=== PATIENT | female | born 1945 | race African-American/Black ===

== ENCOUNTER 2016-05-23 19:35 | Observation (INO) ==
--- NOTE | 2016-05-23 19:51 | Emergency Department Note ---
Disposition Clinical Impression: Chest pain Qualifiers: Chest pain type: precordial pain Qualified Code(s): R07.2 - Precordial pain Disposition: Home, Self-Care Condition: Fair Time of Disposition: 22:40 Extremity Problem HPI - General Chief complaint: ED Extremity Problem,Nontraumatic Stated complaint: Left shoulder, lefft breast, left back and shoulde Time Seen by Provider: 05/23/16 19:39 Source: patient, EMS Mode of arrival: EMS Limitations: no limitations Nursing Notes Reviewed: Yes Vital Signs Reviewed: Yes - History of Present Illness HPI Narrative: Patient is a 71-year-old female brought in by squad due to left breast and left shoulder pain. She denies this being cardiac she states the pain is worse when she touches her breast. Pain began at 4 PM at rest. She did take 3 sublingual nitroglycerin before calling squad. She did not take any aspirin she states she is allergic to aspirin. On discussion with the 71-year-old female she has had multiple falls prostate April 21 she denies any blurred vision that was she denies any actual syncope in addition T that she tellshaving chest pain is relieved with nitroglycerin states that she has had no nausea no vomiting patient states that the nitroglycerin really relieves her pain the best she denies any fever chills she has had no history of cardiac catheterization or stress test Onset (ago): day(s) (2) Consistency: intermittent Injury Location: left (chest ) Pain Scale: 5 Quality: aching Radiation: proximal Improves with: nothing Worsens with: nothing Associated symptoms: Reports: chest pain. Denies: shortness of breath, abdominal pain, back pain, bowel/bladder symptoms, fever, myalgias, arthralgias , rash, change in appearance, swelling, redness Context: other (no prior cardiac hx or workup) - Related Data Home Medications Medication Instructions Recorded Confirmed GlipiZIDE [Glucotrol] 5 mg PO BIDWM 01/18/16 05/24/16 Insulin LISPRO [HumaLOG] 20 units SQ TIDWM 01/18/16 05/24/16 Lisinopril [Zestril] 10 mg PO DAILY 01/18/16 05/24/16 Albuterol Neb 05/24/16 Atorvastatin [Lipitor] 10 mg PO HS 05/24/16 05/24/16 Ondansetron ODT [Zofran ODT] 4 mg SL Q6HR 05/24/16 05/24/16 Previous Rx's Medication Instructions Recorded Albuterol Sulfate [Albuterol 2 puff IH Q4HR PRN #1 hfa.aer.ad 04/27/16 Inhaler] Allergies Allergy/AdvReac Type Severity Reaction Status Date / Time Penicillins Allergy Hives Verified 01/18/16 11:38 Iodinated Contrast Media - AdvReac Hives Verified 01/18/16 11:38 Oral and [Iodinated Contrast Media - IV Dye] sumatriptan [From Imitrex] AdvReac Nausea Verified 01/18/16 11:38 All systems ED: reviewed and negative except as stated. Constitutional: Denies: fever, chills, weakness Eyes: Denies: vision change ENT ED: Denies: ear pain, throat pain Cardiovascular: Reports: chest pain Respiratory: Denies: cough, dyspnea, wheezes Gastrointestinal: Denies: abdominal pain, nausea, vomiting Genitourinary: Denies: urgency, dysuria Musculoskeletal: Denies: back pain, neck pain Integumentary: Denies: rash, abrasion Neurological: Denies: headache Psychiatric: Denies: anxiety Endocrine: Denies: fatigue Hematological/Lymphatic: Denies: easy bleeding Allergic/Immunologic: Denies: facial swelling Past Medical History - Past Medical History Attestation: Yes The following information was validated with the patient. Source: patient, old records reviewed, nursing notes reviewed Medical history: Reports: COPD, diabetes, hypertension, other Surgical history: Reports: cholecystectomy, hysterectomy, knee replacement ( Bilateral), orthopedic, other (Right shoulder, right ankle), other (Thoracotomy , reported to be accidental) Psychiatric history: Reports: no psych history [employer] OPER[employer] history: Reports: no [employer] OPERATOR history - Social History Smoking Status: Former smoker Smokeless Tobacco Status: No Alcohol use: Reports: none Drug use: Reports: none Physical Exam - General Limitations: no limitations General appearance: alert, in no apparent distress, obese - Head Head exam: atraumatic, normocephalic, normal inspection - Eye Eye exam: Present: normal appearance, PERRL, EOMI - ENT ENT exam: normal exam, normal oropharynx, mucous membranes moist, TM's normal bilaterally, normal external ear exam - Neck Neck exam: Present: normal inspection, full ROM, trachea midline - Chest Chest inspection: Present: normal inspection, symmetric chest wall rise, tenderness (left chest wall) - Respiratory Respiratory exam: Present: normal lung sounds bilaterally - Cardiovascular Cardiovascular exam: Present: regular rate, normal rhythm, normal heart sounds - Abdominal Exam Abdominal exam: Present: soft, Non-Tender, normal bowel sounds. Absent: mass, pulsatile mass - Extremities Exam Extremities exam: Present: normal inspection, full ROM, normal capillary refill. Absent: tenderness, calf tenderness - Expanded Upper Extremity Exam Shoulder exam: Present: normal inspection, full ROM Arm exam: Present: normal inspection, full ROM Elbow exam: Present: normal inspection, full ROM Forearm/Wrist exam: Present: normal inspection, full ROM Hand exam: Present: normal inspection, full ROM Vascular exam: Normal: capillary refill, radial pulse - Expanded Lower Extremity Exam Hip/Pelvis exam: Present: normal inspection, full ROM Upper leg exam: Present: normal inspection, full ROM Knee exam: Present: normal inspection, full ROM Lower leg exam: Present: normal inspection, full ROM Ankle exam: Present: normal inspection, full ROM Foot/toe exam: Present: normal inspection, full ROM Neurovascular/Tendon exam: Present: normal capillary refill, normal fine/light touch. Absent: motor deficit, sensory deficit, tendon deficit Gait: observed and normal - Back Exam Back exam: Present: normal inspection, full ROM. Absent: muscle spasm - Neurological Exam Neurological exam: Present: alert, oriented X3, CN II-XII intact - Psychiatric Psychiatric exam: Present: normal affect, normal mood - Skin Skin exam: Present: warm, dry, intact, normal color Course Course Narrative: She was seen and examined patient was resting comfortably had no change in pain or discomfort at time of examination then shortly afterwards being in the emergency*complaining of left breast pain there is no rash no lesions patient was ordered Maria Stein to see if this alleviates because the EKG initially was negative repeat EKG again is unchanged and also was observed - Reevaluation(s) Reevaluation #1: Patient presents emergency room is having chest pain patient has had intermittent and last year she is currently pain-free she has had no additional symptoms as result patient be admitted for observation spoke with Dr. Drake agreed for observation Vital Signs Temperature 97.3 F L 05/23/16 19:39 Pulse Rate 86 05/23/16 19:39 Respiratory Rate 16 05/23/16 19:39 Blood Pressure 154/92 05/23/16 19:39 O2 Sat by Pulse Oximetry 95 05/23/16 19:39 Temperature 97.5 F L 05/24/16 10:33 Pulse Rate 78 05/24/16 10:33 Respiratory Rate 18 05/24/16 10:33 Blood Pressure 168/93 05/24/16 10:33 O2 Sat by Pulse Oximetry 95 05/24/16 10:33 Oxygen Delivery Oxygen Delivery Room Air Extremity Problem, Nontraumati - MDM Narrative Medical decision making narrative: Chest pain unstable angina esophageal pulmonary leaks and the possible use of a pneumonia or bronchitis at this time we are going to admit her for observation to rule out etiologies - Medical Records Medical records reviewed: Yes I reviewed the patient's medical records. - Lab Data Lab results reviewed: Yes I reviewed the patient's lab results. Result diagrams: 05/24/16 07:15 05/24/16 07:15 Lab Results 05/23/16 05/23/16 05/23/16 Range/Units 20:05 20:05 20:05 WBC 7.8 (4.3-11.1) K/mcL RBC 5.33 H (3.82-4.97) M/mcL Hgb 13.8 (11.5-15.4) g/dL Hct 42.1 (35.3-44.9) % MCV 79.0 L (83.0-100.0) fL MCH 25.9 L (28.0-33.3) pg MCHC 32.8 (31.6-35.5) g/dL RDW 15.6 H (11.5-14.5) % Plt Count 183 (140-400) K/mcL MPV 11.2 (9.4-12.4) fL Immature Gran % 0.3 (0-4) % Seg Neutrophils % 54.4 % Lymphocytes % 35.1 % Monocytes % 5.7 % Eosinophils % 3.7 % Basophils % 0.8 % Neutrophils # 4.2 (1.6-8.9) K/mcL Lymphocytes # 2.7 (0.6-4.6) K/mcL Monocytes # 0.4 (0.0-1.3) K/mcL Eosinophils # 0.3 (0.0-0.6) K/mcL Basophils # 0.1 (0.0-0.2) K/mcL PT 10.9 (9.4-12.1) Seconds INR 1.0 Sodium 142 (136-145) mEq/L Potassium 3.9 (3.5-4.5) mEq/L Chloride 106 (98-109) mEq/L Carbon Dioxide 25 (19-29) mEq/L BUN 16 (7-20) mg/dL Creatinine 0.84 (0.57-1.11) mg/dL Est GFR ( Amer) > 60 (> 60) Est GFR (Non-Af Amer) > 60 (> 60) BUN/Creatinine Ratio 19 (6-26) Glucose 206 H (70-99) mg/dL Calculated Osmolality 301 H (280-300) Calcium 9.2 (8.6-10.8) mg/dL Total Bilirubin 0.4 (0.2-1.2) mg/dL AST 18 (5-34) Units/L ALT 12 (0-55) Units/L Alkaline Phosphatase 109 (38-126) Units/L Troponin I (0-0.03) ng/mL Serum Total Protein 7.1 (6.0-8.3) g/dL Albumin 3.4 L (3.5-5.0) g/dL Globulin 3.7 H (2.4-3.5) g/dL Albumin/Globulin Ratio 0.9 L (1.1-2.2) Urine Color (Yellow) Urine Clarity (Clear) Urine pH (5.0-8.0) pH Units Ur Specific [place] (1.010-1.025) Urine Protein (Neg-Trace) mg/dL Urine Glucose (UA) (Normal) mg/dL Urine Ketones (Negative) mg/dL Urine Blood (Negative) Urine Nitrite (Negative) Urine Bilirubin (Negative) Urine Urobilinogen (Normal) mg/dL Ur Leukocyte Esterase (Negative) Urine Microscopic RBC (0-3) per hpf Urine Microscopic WBC Ur Squamous Epith Cells (None-Few) per lpf Ur Culture Indicated? (NO) 05/23/16 05/23/16 Range/Units 20:05 22:25 WBC (4.3-11.1) K/mcL RBC (3.82-4.97) M/mcL Hgb (11.5-15.4) g/dL Hct (35.3-44.9) % MCV (83.0-100.0) fL MCH (28.0-33.3) pg MCHC (31.6-35.5) g/dL RDW (11.5-14.5) % Plt Count (140-400) K/mcL MPV (9.4-12.4) fL Immature Gran % (0-4) % Seg Neutrophils % % Lymphocytes % % Monocytes % % Eosinophils % % Basophils % % Neutrophils # (1.6-8.9) K/mcL Lymphocytes # (0.6-4.6) K/mcL Monocytes # (0.0-1.3) K/mcL Eosinophils # (0.0-0.6) K/mcL Basophils # (0.0-0.2) K/mcL PT (9.4-12.1) Seconds INR Sodium (136-145) mEq/L Potassium (3.5-4.5) mEq/L Chloride (98-109) mEq/L Carbon Dioxide (19-29) mEq/L BUN (7-20) mg/dL Creatinine (0.57-1.11) mg/dL Est GFR ( Amer) (> 60) Est GFR (Non-Af Amer) (> 60) BUN/Creatinine Ratio (6-26) Glucose (70-99) mg/dL Calculated Osmolality (280-300) Calcium (8.6-10.8) mg/dL Total Bilirubin (0.2-1.2) mg/dL AST (5-34) Units/L ALT (0-55) Units/L Alkaline Phosphatase (38-126) Units/L Troponin I 0.01 (0-0.03) ng/mL Serum Total Protein (6.0-8.3) g/dL Albumin (3.5-5.0) g/dL Globulin (2.4-3.5) g/dL Albumin/Globulin Ratio (1.1-2.2) Urine Color Yellow (Yellow) Urine Clarity Clear (Clear) Urine pH 5.0 (5.0-8.0) pH Units Ur Specific [place] 1.025 (1.010-1.025) Urine Protein 100 H (Neg-Trace) mg/dL Urine Glucose (UA) 250 H (Normal) mg/dL Urine Ketones Trace H (Negative) mg/dL Urine Blood Small H (Negative) Urine Nitrite Negative (Negative) Urine Bilirubin Negative (Negative) Urine Urobilinogen Normal (Normal) mg/dL Ur Leukocyte Esterase Negative (Negative) Urine Microscopic RBC 3-5 H (0-3) per hpf Urine Microscopic WBC Test Not Performed Ur Squamous Epith Cells Few (None-Few) per lpf Ur Culture Indicated? NO (NO) - Radiology Data Radiology results reviewed: Yes I reviewed the patient's radiology results. ITS Impressions Chest X-Ray 05/23/16 19:39 IMPRESSION: Mild bibasilar atelectasis. D/ / Regino Hutton MD / Regino Hutton MD Interpreting Provider: Regino Hutton MD Impressions Chest X-Ray 05/23/16 19:39 IMPRESSION: Mild bibasilar atelectasis. D/ / Regino Hutton MD / Regino Hutton MD Interpreting Provider: Regino Hutton MD Abdomen/Pelvis CT 05/23/16 21:33 IMPRESSION: 1. No acute process in the abdomen or pelvis. 2. Moderate diverticulosis in the sigmoid colon. D/ / 05/23/2016 22:24:27 Jerry Ruano MD / rachelle Interpreting Provider: Jerry Ruano MD Chest CT 05/23/16 21:33 IMPRESSION: 1. No acute process in the abdomen or pelvis. 2. Moderate diverticulosis in the sigmoid colon. D/ / 05/23/2016 22:24:27 Jerry Ruano MD / rachelle Interpreting Provider: Jerry Ruano MD - EKG Data EKG attestation: Yes I reviewed and interpreted this EKG. EKG results narrative: Rhythm NSR Heart Rate 93 PA 175 QRS 93 QT 346 Axes -26 EEG #2 Rhythm NSR Heart Rate 89 PA 156 QRS 97 QT 363 Axes -23 Critical Care Time Critical Care Time: No
[2016-05-23 20:39] LABS: Prothrombin Time 10.9 Seconds (9.4-12.1)
[2016-05-23 20:51] LABS: Alanine Aminotransferase 12 Units/L (0-55); Albumin 3.4 g/dL (3.5-5.0); Albumin/Globulin Ratio 0.9 (1.1-2.2); Alkaline Phosphatase 109 Units/L (38-126); Aspartate Amino Transferase 18 Units/L (5-34); BUN/Creatinine Ratio 19 (6-26); Bilirubin,Total 0.4 mg/dL (0.2-1.2); Blood Urea Nitrogen 16 mg/dL (7-20); Calcium 9.2 mg/dL (8.6-10.8); Carbon Dioxide 25 mEq/L (19-29); Chloride 106 mEq/L (98-109); Globulin 3.7 g/dL (2.4-3.5); Glucose 206 mg/dL (70-99); Osmolality,Calculated 301 (280-300); Potassium 3.9 mEq/L (3.5-4.5); Sodium 142 mEq/L (136-145); Total Protein 7.1 g/dL (6.0-8.3); eGFR For African Americans > 60 (> 60); eGFR For Non-African Americans > 60 (> 60)
[2016-05-23 21:01] LABS: Basophils # 0.1 K/mcL (0.0-0.2); Basophils % 0.8 %; Eosinophils # 0.3 K/mcL (0.0-0.6); Eosinophils % 3.7 %; Hematocrit 42.1 % (35.3-44.9); Hemoglobin 13.8 g/dL (11.5-15.4); Immature Granulocytes % 0.3 % (0-4); Lymphocytes # 2.7 K/mcL (0.6-4.6); Lymphocytes % 35.1 %; Mean Corpuscular HGB Conc 32.8 g/dL (31.6-35.5); Mean Corpuscular Hemoglobin 25.9 pg (28.0-33.3); Mean Platelet Volume 11.2 fL (9.4-12.4); Monocytes # 0.4 K/mcL (0.0-1.3); Monocytes % 5.7 %; Neutrophils # 4.2 K/mcL (1.6-8.9); Platelet Count 183 K/mcL (140-400); Red Blood Count 5.33 M/mcL (3.82-4.97); Red Cell Distribution Width 15.6 % (11.5-14.5); Segmented Neutrophils % 54.4 %
[2016-05-23] MEDS ORDERED: *HR* HYDROcodone/Acet 5/325 mg TABLET PO ONE (21:24)
[2016-05-23] MEDS ORDERED: Aspirin 81 MG TAB.CHEW PO ONE (21:24)
[2016-05-23 22:29] LABS: Bilirubin,Urine Negative (Negative); Blood,Urine Small (Negative); Clarity,Urine Clear (Clear); Color,Urine Yellow (Yellow); Glucose,Urine (UA) 250 mg/dL (Normal); Ketones,Urine Trace mg/dL (Negative); Leukocyte Esterase,Urine Negative (Negative); Nitrite,Urine Negative (Negative); Protein,Urine 100 mg/dL (Neg-Trace); Specific Gravity,Urine 1.025 (1.010-1.025); Urobilinogen,Urine Normal (Normal)
[2016-05-23 22:38] LABS: Squamous Epithelial Cell,Urine Few per lpf (None-Few)
[2016-05-24] MEDS ORDERED: Naloxone 0.4 MG/ML INJ IVP PRN (00:58)
[2016-05-24] MEDS ORDERED: *HR* Dextrose 50 % in Water (Syg) 50 ML SYRINGE IVP PRN (00:58)
[2016-05-24] MEDS ORDERED: D5% in Water 1,000 ML IV PRN (00:58)
[2016-05-24] MEDS ORDERED: Dextrose Gel 15 GM PO PRN ×2 (00:58)
[2016-05-24] MEDS ORDERED: Ondansetron 4 MG/2 ML VIAL IVP PRN (00:58)
[2016-05-24] MEDS ORDERED: Lisinopril 20 MG TABLET PO ONE (03:56)
[2016-05-24] MEDS: *HR* HYDROcodone/Acet 5/325 mg TABLET PO PRN ×3 (04:10→13:04)
[2016-05-24] MEDS ORDERED: Famotidine 20 MG TABLET PO SCH (07:30)
[2016-05-24] MEDS ORDERED: *HR* GlipiZIDE 5 MG TABLET PO SCH (08:00)
[2016-05-24] MEDS: Insulin LISPRO 300 UNITS/3 ML VIAL SQ SCH ×2 (08:19→13:01)
[2016-05-24 08:53] LABS: Basophils # 0.1 K/mcL (0.0-0.2); Basophils % 0.9 %; Eosinophils # 0.3 K/mcL (0.0-0.6); Eosinophils % 3.7 %; Hematocrit 38.8 % (35.3-44.9); Hemoglobin 12.6 g/dL (11.5-15.4); Immature Granulocytes % 0.2 % (0-4); Lymphocytes # 2.7 K/mcL (0.6-4.6); Mean Corpuscular HGB Conc 32.5 g/dL (31.6-35.5); Mean Corpuscular Hemoglobin 25.6 pg (28.0-33.3); Mean Corpuscular Volume 78.9 fL (83.0-100.0); Mean Platelet Volume 11.1 fL (9.4-12.4); Monocytes # 0.5 K/mcL (0.0-1.3); Monocytes % 6.6 %; Neutrophils # 4.4 K/mcL (1.6-8.9); Platelet Count 150 K/mcL (140-400); Red Blood Count 4.92 M/mcL (3.82-4.97); Red Cell Distribution Width 15.5 % (11.5-14.5); Segmented Neutrophils % 54.6 %
[2016-05-24 09:52] LABS: BUN/Creatinine Ratio 21 (6-26); Blood Urea Nitrogen 17 mg/dL (7-20); Calcium 8.7 mg/dL (8.6-10.8); Carbon Dioxide 21 mEq/L (19-29); Chloride 107 mEq/L (98-109); Glucose 268 mg/dL (70-99); Osmolality,Calculated 299 (280-300); Potassium 4.2 mEq/L (3.5-4.5); Sodium 139 mEq/L (136-145); eGFR For African Americans > 60 (> 60); eGFR For Non-African Americans > 60 (> 60)
[2016-05-24 10:38] VITALS: BP 168/93
--- NOTE | 2016-05-24 14:39 | Internal Med History&Physical ---
Date of Encounter: 05/24/16 Time of Encounter: 13:45 Assessment and Plan (1) Chest pain Current visit: Yes Status: Acute Doubt myocardial ischemia. Repeat cardiac enzymes were ordered by emergency room. Further workup will be done as needed. Qualifiers: Chest pain type: precordial pain Qualified Code(s): R07.2 - Precordial pain Internal Medicine - H&P: HPI Chief complaint: Chest and left arm pain Admitted From: Home Plans for Post Hospital Care: Home History of present illness: Ms. Parks is a 71 year old female who came to emergency room stating she had onset of left chest discomfort that radiated to her back approximately 3:30 PM while at leisure. She has had pain in her left shoulder that been present for several months. She states the shoulder pain seemed to be more extensive and more intense when the chest discomfort occurred. She took a nitroglycerin pill with complete relief of the chest discomfort. A short while later the chest discomfort recurred and she took another nitroglycerin pill with only minimal relief. She then applied a nitroglycerin patch with minimal relief. She took yet another nitroglycerin pill and came to emergency room. She was evaluated and admitted to [facility] for ongoing care needs. She denies previous similar chest discomfort. Her cardiovascular history is significant for hypertension. She states she had a heart cath at [facility] approximately 2012 which did not show any significant stenoses. She denies angina or anginal equivalents on exertion. She denies DVT or pulmonary embolus. She states her chest pain has resolved again. Past Med Surg Social Fam HX - Past Medical History Medical history: COPD, diabetes, hypertension Psychiatric history: no psych history - Past Surgical History Surgical History: cholecystectomy, hysterectomy, knee replacement, orthopedic, other, other - Social History Smoking Status: Former smoker Smokeless Tobacco Status: No Alcohol use: none Drug use: none - Family History Mother Age: 70 Living Status: Hx Family Cardiac Disorders: Yes (HYPERTENSION/ HEART DISEASE) Hx Family Cancer: Yes (BREAST/LUNG/STOMACH/COLON) Hx Family Endocrine Disorder: Yes (DIABETES) Internal Medicine - H&P: Meds GlipiZIDE [Glucotrol] 5 mg PO BIDWM 01/18/16 [History] Insulin LISPRO [HumaLOG] 20 units SQ TIDWM 01/18/16 [History] Lisinopril [Zestril] 10 mg PO DAILY 01/18/16 [History] Albuterol Sulfate [Albuterol Inhaler] 2 puff IH Q4HR PRN #1 hfa.aer.ad 04/27/16 [Rx] Albuterol Neb 05/24/16 [History] Atorvastatin [Lipitor] 10 mg PO HS 05/24/16 [History] Ondansetron ODT [Zofran ODT] 4 mg SL Q6HR 05/24/16 [History] Allergies Penicillins Allergy (Verified 01/18/16 11:38) Hives Iodinated Contrast Media - Oral and [Iodinated Contrast Media - IV Dye] Adverse Reaction (Verified 01/18/16 11:38) Hives sumatriptan [From Imitrex] Adverse Reaction (Verified 01/18/16 11:38) Nausea All Systems PM: A 10-system review of systems was performed and is negative for pertinent findings except as documented above in the HPI. Review of systems: Gen.: Her weight has increased approximately 10 pounds in the past year. Cardiovascular: As per history of present illness Respiratory: She smoked from age [age] up to 3 packs per day. She had PFTs approximately 2011 and was told she had mild COPD. She does not wear home oxygen. GI: She has had cholecystectomy. She denies disorders of her liver or exocrine pancreas : She denies hematuria dysuria or kidney stones Neurologic: She denies large distribution strokes or seizures Endocrine: She was diagnosed with DM 2 approximately age 51. She has hyperlipidemia but denies thyroid disease Hematology: She denies blood disorders cancers or anemia Psychiatric: She denies anxiety depression or other mental health issues Musk skeletal: She has DJD. She sustained right arm fracture after a fall December 2015 with ORIF repair. She has had frequent pain in her left shoulder since January 2016 occurring now on a daily basis. She has been diagnosed with vitamin D deficiency. She denies gout. - Constitutional Vitals: Temp Pulse Resp BP Pulse Ox 97.5 F L 78 18 168/93 95 05/24/16 10:33 05/24/16 10:33 05/24/16 10:33 05/24/16 10:33 05/24/16 10:33 Exam: Gen.: She is a well developed well-nourished female who appears in no severe distress at present time. HEENT: Head is atraumatic and normocephalic. Eyes: EOMI. There is no scleral icterus. Mouth: Mucosa is moist. Neck: Supple and nontender. There is no thyromegaly or adenopathy noted. Heart: Regular without murmurs gallops or ectopics. Lungs: No wheezes or crackles heard. Chest: She is tender in her costosternal joints to palpation. She has pain in the inframammary area of the left anterior chest wall Abdomen: Soft and nontender. No masses or guarding noted. Extremities: There is no cyanosis edema or clubbing noted. Dorsalis pedis and posttibial pulses are 1-2 over 2 bilaterally. She has tenderness in the left anterior shoulder area over the biceps tendon. She has pain on passive range of motion of the shoulders. Neurologic: Mental status: She is talkative and a good historian. Cranial nerves: Smile is symmetric. Forehead wrinkles bilaterally. Tongue protrudes midline. EOMI. Motor: There is no pronator drift. Cerebellar: Finger to nose is intact bilaterally. Skin: Warm and dry Internal Med - H&P Results - Labs CBC & Chem 7: 05/24/16 07:15 05/24/16 07:15 Labs: Short CBC 05/24/16 Range/Units 07:15 WBC 8.0 (4.3-11.1) K/mcL Hgb 12.6 (11.5-15.4) g/dL Hct 38.8 (35.3-44.9) % Plt Count 150 (140-400) K/mcL Neutrophils # 4.4 (1.6-8.9) K/mcL BMP 05/24/16 07:15 Sodium 139 Potassium 4.2 Chloride 107 Carbon Dioxide 21 BUN 17 Creatinine 0.81 Glucose 268 H Calcium 8.7 Cardiac Enzymes 05/24/16 Range/Units 07:15 Troponin I 0.00 (0-0.03) ng/mL
--- NOTE | 2016-05-24 15:16 | Discharge Summary ---
Date of Encounter: 05/24/16 Time of Encounter: 13:45 - Discharge Diagnosis (1) Chest pain Priority: Primary Status: Acute Qualifiers: Chest pain type: precordial pain Qualified Code(s): R07.2 - Precordial pain - Discharge Medications Home Medications: GlipiZIDE [Glucotrol] 5 mg PO BIDWM 01/18/16 [History] Insulin LISPRO [HumaLOG] 20 units SQ TIDWM 01/18/16 [History] Lisinopril [Zestril] 10 mg PO DAILY 01/18/16 [History] Albuterol Sulfate [Albuterol Inhaler] 2 puff IH Q4HR PRN #1 hfa.aer.ad 04/27/16 [Rx] Albuterol Neb 05/24/16 [History] Atorvastatin [Lipitor] 10 mg PO HS 05/24/16 [History] Ondansetron ODT [Zofran ODT] 4 mg SL Q6HR 05/24/16 [History] Allergies/Adverse Reactions: Allergies Penicillins Allergy (Verified 01/18/16 11:38) Hives Iodinated Contrast Media - Oral and [Iodinated Contrast Media - IV Dye] Adverse Reaction (Verified 01/18/16 11:38) Hives sumatriptan [From Imitrex] Adverse Reaction (Verified 01/18/16 11:38) Nausea Date of admission: 05/23/16 23:25 Primary care physician: Zee Ortiz - Patient Status Disposition: Home, Self-Care Condition: Fair Overall status at discharge: patient is progressing back to baseline - Discharge Instructions Follow Up With: Zee Ortiz [Primary Care Provider] - 1 week - Diet and Activity Activity: resume usual activities as tolerated Diet: diabetic diet Hospital course: Ms. Parks is a 71 year old female who came to emergency room stating she had onset of left chest discomfort that radiated to her back approximately 3:30 PM while at leisure. She has had pain in her left shoulder that been present for several months. She states the shoulder pain seemed to be more extensive and more intense when the chest discomfort occurred. She took a nitroglycerin pill with complete relief of the chest discomfort. A short while later the chest discomfort recurred and she took another nitroglycerin pill with only minimal relief. She then applied a nitroglycerin patch with minimal relief. She took yet another nitroglycerin pill and came to emergency room. She was evaluated and admitted to [facility] for ongoing care needs. Initial orders were written by the emergency room physician. I saw her on May 24 and performed a history physical and discharge. Repeat cardiac enzymes showed no evidence of myocardial damage. When I saw her I did not think the chest pain was of myocardial ischemic origin. I felt it was musk skeletal origin. I recommended she try OTC Advil/Aleve at home. I recommended she call her primary care provider and/or orthopedist if she is not improved within one week. She felt stable for discharge home which I felt was reasonable. She will follow with her primary care provider in approximately 7-10 days. - Time Spent with Patient Total time spent providing and/or coordinating discharge services: - Constitutional Vitals: Temp Pulse Resp BP Pulse Ox 97.5 F L 78 18 168/93 95 05/24/16 10:33 05/24/16 10:33 05/24/16 10:33 05/24/16 10:33 05/24/16 10:33
--- NOTE | 2016-05-25 22:49 | Electrocardiograph Report ---
[facility] Test Date: 2016-05-23 Pat Name: Chelsea Parks Department: [id number] Room: [facility] Gender: F Winder Contort Operator: [id number] : 1945 Requested By: Patrick Beasley Order Number: [id number] Reading MD: Julio César Bates MD Measurements Intervals [place] Rate: 86 P: 14 [place]: 175 QRS: -26 QRSD: 93 T: 31 QT: 346 QTc: 389 Interpretive Statements SINUS RHYTHM BORDERLINE LEFT AXIS DEVIATION NONSPECIFIC ST \T\ T-WAVE ABNORMALITY Electronically Signed On 05-25-16 22:48:49 EST by Julio César Bates MD
--- NOTE | 2016-05-25 23:21 | Electrocardiograph Report ---
[facility] Test Date: 2016-05-23 Pat Name: Cehlsea Parks Department: [id number] Room: [facility] Gender: F Travel Director: [id number] : 1945 Requested By: Imani Pelletier Order Number: [id number] Reading MD: Julio César Bates MD Measurements Intervals [place] Rate: 89 P: 28 ID: [id number] QRS: -23 QRSD: 97 T: 42 QT: 363 QTc: 410 Interpretive Statements SINUS RHYTHM BORDERLINE LEFT AXIS DEVIATION POOR R-WAVE PROGRESSION NONSPECIFIC ST \T\ T-WAVE ABNORMALITY Electronically Signed On 05-25-16 23:20:11 EST by Julio César Bates MD
== END 2016-05-24 15:43 | disposition home or self-care (01) ==
LOC: INPPIK 19:35 → EMEROOPIK 19:35 → INPPIK 05-24 00:15
PROVIDERS: ADMIT Internal Medicine; ATTEND Internal Medicine

== ENCOUNTER 2018-07-29 17:50 | Inpatient (IN) ==
[2018-07-30] MEDS ORDERED: *HR* OxyCODONE/APAP 5/325 TABLET PO PRN (15:48)
[2018-07-30] MEDS ORDERED: Nitroglycerin 0.4 MG TAB.SUBL SL PRN (16:01)
[2018-07-30] MEDS ORDERED: Ondansetron ODT 4 MG TAB.RAPDIS SL PRN (16:02)
[2018-07-30] MEDS: Gabapentin 100 MG CAPSULE PO SCH (21:02)
[2018-07-30] MEDS: Furosemide 40 MG TABLET PO SCH (21:02)
[2018-07-30] MEDS: *HR* GlipiZIDE 5 MG TABLET PO SCH (21:03)
[2018-07-30] MEDS: Cefdinir 300 MG CAPSULE PO SCH (21:04)
[2018-07-30] MEDS: Insulin LISPRO 300 UNITS/3 ML VIAL SQ SCH (21:04)
[2018-07-31 04:52] LABS: Basophils % 0.5 %; Eosinophils # 0.5 K/mcL (0.0-0.6); Eosinophils % 7.2 %; Hematocrit 30.7 % (35.3-44.9); Hemoglobin 9.7 g/dL (11.5-15.4); Immature Granulocytes % 0.5 % (0-4); Lymphocytes # 1.5 K/mcL (0.6-4.6); Mean Corpuscular HGB Conc 31.6 g/dL (31.6-35.5); Mean Corpuscular Hemoglobin 26.2 pg (28.0-33.3); Mean Platelet Volume 10.5 fL (9.4-12.4); Monocytes # 0.5 K/mcL (0.0-1.3); Monocytes % 7.1 %; Platelet Count 186 K/mcL (140-400); Red Cell Distribution Width 15.5 % (11.5-14.5); Segmented Neutrophils % 61.7 %
[2018-07-31 05:09] LABS: Potassium 3.9 mEq/L (3.5-5.1)
[2018-07-31 05:10] LABS: Calcium 8.8 mg/dL (8.6-10.3)
[2018-07-31] MEDS: *HR* Enoxaparin 40 MG/0.4 ML SYRINGE SQ SCH (06:39)
[2018-07-31] MEDS: *HR* OxyCODONE/APAP 5/325 TABLET PO PRN ×3 (06:42→20:19)
[2018-07-31] MEDS: Insulin LISPRO 300 UNITS/3 ML VIAL SQ SCH ×5 (09:44→20:18)
[2018-07-31] MEDS: Gabapentin 100 MG CAPSULE PO SCH ×2 (09:45→20:19)
[2018-07-31] MEDS: amLODIPine 5 MG TABLET PO SCH (09:45)
[2018-07-31] MEDS: Furosemide 40 MG TABLET PO SCH ×2 (09:45→17:31)
[2018-07-31] MEDS: *HR* GlipiZIDE 5 MG TABLET PO SCH ×2 (09:45→17:31)
[2018-07-31] MEDS: Multivit/Ca/Min/Fe/FA 1 TAB TABLET PO SCH (09:46)
[2018-07-31] MEDS: Cefdinir 300 MG CAPSULE PO SCH ×2 (09:46→20:19)
[2018-07-31] MEDS: Metoprolol XL (24 HR) Succ 50 MG TAB.ER.24H PO SCH (09:46)
--- NOTE | 2018-07-31 18:24 | Internal Med History&Physical ---
Date of Encounter: 07/31/18 Time of Encounter: 17:50 Assessment and Plan (1) Femur fracture, right Current visit: Yes Status: Acute As per orthopedist. Continue PT and OT intervention. Analgesics will be made available as needed. Qualifiers: Encounter type: subsequent encounter Femur location: unspecified portion of femur Fracture type: closed Fracture morphology: unspecified fracture morphology Fracture healing: with nonunion Qualified Code(s): S72.91XK - Unspecified fracture of right femur, subsequent encounter for closed fracture with nonunion (2) Hypertension Current visit: Yes Status: Chronic Continue Norvasc and Toprol. Qualifiers: Hypertension type: essential hypertension Qualified Code(s): I10 - Essential (primary) hypertension (3) Anemia Current visit: Yes Status: Acute Order anemia testing in a.m. Qualifiers: Anemia type: unspecified type Qualified Code(s): D64.9 - Anemia, unspecified (4) Azotemia Current visit: Yes Status: Acute Monitor renal indices. (5) DM type 2 (diabetes mellitus, type 2) Current visit: Yes Status: Acute Check hemoglobin A1c in a.m. Continue Accu-Cheks with SSI. Qualifiers: Diabetes mellitus termite control technician insulin use: with fdc use Diabetes mellitus complication status: with unspecified complications Qualified Code(s): E11.8 - Type 2 diabetes mellitus with unspecified complications; Z79.4 - long term acute care registered nurse (current) use of insulin (6) Hyperlipidemia Current visit: Yes Status: Chronic Check lipid profile in a.m. Qualifiers: Hyperlipidemia type: unspecified Qualified Code(s): E78.5 - Hyperlipidemia, unspecified Internal Medicine - H&P: HPI Chief complaint: Right femur fracture surgical revision Admitted From: Hospital to Hospital Transfer Plans for Post Hospital Care: Home History of present illness: Ms. Parks is a 73 year old female who was discharged to [facility] swing bed from [facility] where she underwent elective repair of nonunion right distal femur fracture with hardware removal and intramedullary nail/kaylee placement with right total knee replacement surgery. Her postop course was unremarkable and she was admitted to swing bed for rehabilitation therapy prior to returning to independent living at home. 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 [place] skeletal history is significant otherwise for DJD. She had right arm fracture septum are 2015 with ORIF repair. She has been diagnosed with vitamin D deficiency. She denies gout. Past Med Surg Social Fam HX - Past Medical History Medical history: arthritis, asthma, COPD, diabetes, GERD, hyperlipidemia, hypertension Additional medical history: chrons. vertigo Psychiatric history: no psych history - Past Surgical History Surgical History: cholecystectomy, hysterectomy, knee replacement, orthopedic, other, other Additional surgical history: RIGHT ARM SURGERY. BILAT KNEE SURGERIES. ankle surgery. FX ARM AND RIGHT LEG - Social History Smoking Status: Former smoker Smokeless Tobacco Status: No Alcohol use: none Drug use: none - Family History Mother Living Status: Hx Family Cardiac Disorders: Yes (HYPERTENSION/ HEART DISEASE) Hx Family Cancer: Yes (BREAST/LUNG/STOMACH/COLON) Hx Family Endocrine Disorder: Yes (DIABETES) Internal Medicine - H&P: Meds Insulin LISPRO [HumaLOG] 40 units SQ TIDWM 01/18/16 [History] Lisinopril [Zestril] 10 mg PO DAILY 01/18/16 [History] glipiZIDE [Glucotrol] 5 mg PO BIDWM 01/18/16 [History] Albuterol Sulfate [Albuterol Inhaler] 2 puff IH Q4HR PRN #1 hfa.aer.ad 04/27/16 [Rx] Albuterol Neb 05/24/16 [History] Atorvastatin [Lipitor] 10 mg PO HS 05/24/16 [History] Allergy/AdvReac Type Severity Reaction Status Date / Time Penicillins Allergy Hives Verified 02/15/18 21:52 Iodinated Contrast- Oral and AdvReac Hives Verified 02/15/18 21:52 IV Dye [Iodinated Contrast Media - IV Dye] sumatriptan [From Imitrex] AdvReac Nausea Verified 02/15/18 21:52 All Systems PM: A 10-system review of systems was performed and is negative for pertinent findings except as documented above in the HPI. Review of systems: Review of systems from her April 2016 [facility] hospitalization were reviewed and revised as below. Gen.: Her weight has increased from 126.552 kg April 2016 to 138.459 kg on admission Cardiovascular: She has history of hypertension. She states she had a heart cath at [facility] approximately 2012 which did not show any significant stenoses. She denies angina or anginal equivalents on exertion. She denies DVT or pulmonary embolus. Respiratory: She smoked from age [age] up to 3 packs per day. She had PFTs approximately 2011 and was told she had mild COPD. She does not wear home oxygen. GI: She has had cholecystectomy. She denies disorders of her liver or exocrine pancreas : She denies hematuria dysuria or kidney stones Neurologic: She denies large distribution strokes or seizures Endocrine: She was diagnosed with DM 2 approximately age 51. She has hyperlipidemia but denies thyroid disease Hematology: She denies blood disorders cancers or anemia Psychiatric: She denies anxiety depression or other mental health issues [place] skeletal: As per history of present illness - Constitutional Vitals: Temp Pulse Resp BP Pulse Ox 97.8 F 76 20 106/66 92 07/31/18 07:44 07/31/18 07:44 07/31/18 07:44 07/31/18 07:44 07/31/18 07:44 Exam: Gen.: She is a well-developed overweight female resting in bed who appears in minimal distress HEENT: Head is atraumatic and normocephalic. Eyes: EOMI. There is no scleral icterus. Mouth: Mucosa is moist. Neck: Supple and nontender. There is no thyromegaly or adenopathy noted. Heart: Regular without murmurs gallops or ectopics Lungs: No wheezes or crackles are heard. Abdomen: She has a large abdomen. It is nontender to palpation. Extremities: There is no cyanosis edema or clubbing noted. Dorsalis pedis and posterior tibial pulses are trace palpable bilaterally. She has surgical dressings in place in her right proximal anterior thigh, posterior lateral th igh, and lateral right knee area. Neurologic: Mental status: She is talkative and a good historian. Cranial nerves: Smile is symmetric. Forehead wrinkles bilaterally. Tongue protrudes midline. EOMI. Motor: There is no pronator drift. Cerebellar: Finger to nose is intact bilaterally. Skin: Warm and dry Internal Med - H&P Results - Labs CBC & Chem 7: 07/31/18 04:35 07/31/18 04:35 Labs: Short CBC 07/31/18 Range/Units 04:35 WBC 6.5 (4.3-11.1) K/mcL Hgb 9.7 L (11.5-15.4) g/dL Hct 30.7 L (35.3-44.9) % Plt Count 186 (140-400) K/mcL Neutrophils # 4.0 (1.6-8.9) K/mcL BMP 07/31/18 04:35 Sodium 140 Potassium 3.9 Chloride 103 Carbon Dioxide 29 BUN 31 H Creatinine 1.16 Glucose 207 H Calcium 8.8
[2018-07-31] MEDS ORDERED: Bisacodyl 10 MG RECTAL SUPPOSITORY RC PRN (18:34)
[2018-07-31] MEDS ORDERED: MOM Conc 10 ML UD.LIQ PO SCH (18:45)
[2018-07-31] MEDS: Lactobacillus 1 EACH CAP.SPRINK PO SCH (20:17)
[2018-07-31] MEDS: Albuterol 2.5 MG/3 ML NEBULIZER IH PRN (20:44)
[2018-07-31] MEDS: Acetaminophen 325 MG TABLET PO PRN (21:52)
[2018-08-01] MEDS: *HR* OxyCODONE/APAP 5/325 TABLET PO PRN ×3 (04:03→18:42)
[2018-08-01] MEDS: *HR* Enoxaparin 40 MG/0.4 ML SYRINGE SQ SCH (06:31)
[2018-08-01 06:41] LABS: Basophils # 0.1 K/mcL (0.0-0.2); Basophils % 0.8 %; Eosinophils # 0.5 K/mcL (0.0-0.6); Eosinophils % 8.1 %; Hematocrit 29.5 % (35.3-44.9); Hemoglobin 9.4 g/dL (11.5-15.4); Immature Granulocytes % 0.6 % (0-4); Lymphocytes # 2.3 K/mcL (0.6-4.6); Lymphocytes % 35.5 %; Mean Corpuscular HGB Conc 31.9 g/dL (31.6-35.5); Mean Corpuscular Hemoglobin 26.2 pg (28.0-33.3); Mean Corpuscular Volume 82.2 fL (83.0-100.0); Mean Platelet Volume 10.5 fL (9.4-12.4); Monocytes # 0.5 K/mcL (0.0-1.3); Monocytes % 7.9 %; Nucleated Red Blood Cells 0.3 /100 WBC (0); Platelet Count 211 K/mcL (140-400); Red Blood Count 3.59 M/mcL (3.82-4.97); Red Cell Distribution Width 15.6 % (11.5-14.5); Segmented Neutrophils % 47.1 %
[2018-08-01 06:59] LABS: Alanine Aminotransferase 10 Units/L (7-52); Albumin 2.9 g/dL (3.5-5.7); Albumin/Globulin Ratio 0.9 (1.1-2.2); Alkaline Phosphatase 60 Units/L (34-104); Aspartate Amino Transferase 12 Units/L (13-39); BUN/Creatinine Ratio 31 (6-26); Bilirubin,Total 0.4 mg/dL (0.3-1.0); Blood Urea Nitrogen 30 mg/dL (8-23); Calcium 8.9 mg/dL (8.6-10.3); Carbon Dioxide 31 mEq/L (23-29); Chloride 104 mEq/L (98-107); Chol/HDL Ratio 5.1 (0-4.9); Cholesterol 138 mg/dL (< 200); Globulin 3.1 g/dL (2.4-3.5); Glucose 185 mg/dL (70-105); HDL Cholesterol 27 mg/dL (40-59); LDL Cholesterol,Calculated 79 mg/dL (0-99); Osmolality,Calculated 305 (280-300); Potassium 4.1 mEq/L (3.5-5.1); Sodium 142 mEq/L (136-145); Triglycerides 160 mg/dL (< 150); eGFR For Non-African Americans 56 (> 60)
[2018-08-01] MEDS: Albuterol 2.5 MG/3 ML NEBULIZER IH PRN (08:35)
[2018-08-01] MEDS: Insulin LISPRO 300 UNITS/3 ML VIAL SQ SCH ×4 (08:39→22:53)
[2018-08-01] MEDS: *HR* GlipiZIDE 5 MG TABLET PO SCH ×2 (08:40→17:16)
[2018-08-01] MEDS: Lactobacillus 1 EACH CAP.SPRINK PO SCH ×2 (08:40→22:52)
[2018-08-01] MEDS: Gabapentin 100 MG CAPSULE PO SCH ×2 (08:40→22:52)
[2018-08-01] MEDS: Acetaminophen 325 MG TABLET PO PRN (08:40)
[2018-08-01] MEDS: amLODIPine 5 MG TABLET PO SCH (08:40)
[2018-08-01] MEDS: Furosemide 40 MG TABLET PO SCH ×2 (08:40→17:16)
[2018-08-01] MEDS: Metoprolol XL (24 HR) Succ 50 MG TAB.ER.24H PO SCH (08:40)
[2018-08-01] MEDS: Multivit/Ca/Min/Fe/FA 1 TAB TABLET PO SCH (08:40)
[2018-08-01] MEDS: Cefdinir 300 MG CAPSULE PO SCH ×2 (08:42→22:53)
[2018-08-01 09:21] LABS: % Iron Saturation 10 % (15-50); Iron 29 mcg/dL (50-170); Transferrin 218 mg/dL (203-362)
[2018-08-01 09:37] LABS: Ferritin 127 ng/mL (10-120)
--- NOTE | 2018-08-01 10:27 | Internal Med Progress Note ---
Date of Encounter: 08/01/18 Time of Encounter: 10:20 - Assessment and plan (1) Femur fracture, right Current Visit: Yes Status: Acute Assessment and plan: August 01. Continue PT and OT intervention with Lovenox. Tylenol will be s cheduled. Continue Percocet as needed. Qualifiers: Encounter type: subsequent encounter Femur location: unspecified portion of femur Fracture type: closed Fracture morphology: unspecified fracture morphology Fracture healing: with nonunion Qualified Code(s): S72.91XK - Unspecified fracture of right femur, subsequent encounter for closed fracture with nonunion (2) Hypertension Current Visit: Yes Status: Chronic Assessment and plan: August 01. Blood pressure borderline low. Discontinue Norvasc. Continue Toprol- XL. Qualifiers: Hypertension type: essential hypertension Qualified Code(s): I10 - Essential (primary) hypertension (3) Anemia Current Visit: Yes Status: Acute Assessment and plan: August 01. B12 and folate levels pending. Available results showed iron 29, transferrin saturation 10%, transferrin 218, and ferritin 127. Start ferrous sulfate with ascorbic acid in a.m. Qualifiers: Anemia type: unspecified type Qualified Code(s): D64.9 - Anemia, unspecified (4) Azotemia Current Visit: Yes Status: Acute Assessment and plan: August 01. BUN and creatinine decreased slightly to 30 and 0.97 respectively with estimated GFR 56. Continue to monitor labs. (5) DM type 2 (diabetes mellitus, type 2) Current Visit: Yes Status: Acute Assessment and plan: August 01. Hemoglobin A1c pending. Continue Glucotrol and Accu-Cheks with SSI. Start Januvia since blood sugars are above desirable range. Qualifiers: Diabetes mellitus marine oil terminal superintendent insulin use: with marine oil terminal superintendent use Diabetes nancy kelly complication status: with unspecified complications Qualified Code(s): E11.8 - Type 2 diabetes mellitus with unspecified complications; Z79.4 - [facility] (current) use of insulin (6) Hyperlipidemia Current Visit: Yes Status: Chronic Assessment and plan: August 01. Lipid profile showed cholesterol 138, triglycerides 160, LDL 79, HDL 27, and total/HDL ratio 5.1%. Continue Lipitor. Qualifiers: Hyperlipidemia type: unspecified Qualified Code(s): E78.5 - Hyperlipidemia, unspecified - Subjective Interval history: August 01. She has no new complaints. She states her right leg is hurting. - Constitutional Vitals: Temp Pulse Resp BP Pulse Ox 98.3 F 73 26 105/66 91 08/01/18 07:31 08/01/18 07:31 08/01/18 08:35 08/01/18 07:31 08/01/18 08:35 Exam: She is lying in bed and appears to be having chills. She denies sore throat rhinorrhea dyspnea vomiting or diarrhea. Extremities show no pitting edema. I reviewed her medications and lab results. Internal Medicine: Result - Labs CBC & Chem 7: 08/01/18 06:15 08/01/18 06:15 Labs: Short CBC 08/01/18 Range/Units 06:15 WBC 6.3 (4.3-11.1) K/mcL Hgb 9.4 L (11.5-15.4) g/dL Hct 29.5 L (35.3-44.9) % Plt Count 211 (140-400) K/mcL Neutrophils # 3.0 (1.6-8.9) K/mcL BMP 08/01/18 06:15 Sodium 142 Potassium 4.1 Chloride 104 Carbon Dioxide 31 H BUN 30 H Creatinine 0.97 Glucose 185 H Calcium 8.9 Liver Function 08/01/18 Range/Units 06:15 Total Bilirubin 0.4 (0.3-1.0) mg/dL AST 12 L (13-39) Units/L ALT 10 (7-52) Units/L Alkaline Phosphatase 60 (34-104) Units/L Albumin 2.9 L (3.5-5.7) g/dL Consult Discharge Plan - Plan Referrals: Zee Ortiz [Primary Care Provider] - 1 week
[2018-08-01 11:03] LABS: Folate 9.2 ng/mL (3.0-16.0)
[2018-08-01] MEDS: *HR* SitaGLIPtin 25 MG TABLET PO SCH (11:36)
[2018-08-01] MEDS: Acetaminophen 325 MG TABLET PO SCH ×3 (11:37→22:52)
[2018-08-02] MEDS: Albuterol 2.5 MG/3 ML NEBULIZER IH PRN (04:23)
[2018-08-02] MEDS ORDERED: Ascorbic Acid 500 MG TABLET PO SCH (06:30)
[2018-08-02 06:46] LABS: Basophils # 0.1 K/mcL (0.0-0.2); Basophils % 0.8 %; Eosinophils # 0.5 K/mcL (0.0-0.6); Eosinophils % 7.6 %; Hematocrit 30.8 % (35.3-44.9); Hemoglobin 9.6 g/dL (11.5-15.4); Immature Granulocytes % 1.3 % (0-4); Lymphocytes # 2.4 K/mcL (0.6-4.6); Lymphocytes % 33.1 %; Mean Corpuscular HGB Conc 31.2 g/dL (31.6-35.5); Mean Corpuscular Hemoglobin 25.9 pg (28.0-33.3); Mean Corpuscular Volume 83.2 fL (83.0-100.0); Mean Platelet Volume 10.7 fL (9.4-12.4); Monocytes # 0.5 K/mcL (0.0-1.3); Monocytes % 7.3 %; Neutrophils # 3.6 K/mcL (1.6-8.9); Nucleated Red Blood Cells 0.4 /100 WBC (0); Platelet Count 245 K/mcL (140-400); Red Cell Distribution Width 15.8 % (11.5-14.5); Segmented Neutrophils % 49.9 %
[2018-08-02] MEDS: *HR* Enoxaparin 40 MG/0.4 ML SYRINGE SQ SCH (06:51)
[2018-08-02 07:06] VITALS: BP 104/66
[2018-08-02 07:14] LABS: BUN/Creatinine Ratio 29 (6-26); Blood Urea Nitrogen 30 mg/dL (8-23); Carbon Dioxide 30 mEq/L (23-29); Chloride 104 mEq/L (98-107); Glucose 226 mg/dL (70-105); Osmolality,Calculated 311 (280-300); Potassium 3.8 mEq/L (3.5-5.1); Sodium 144 mEq/L (136-145); eGFR For Non-African Americans 53 (> 60)
[2018-08-02] MEDS: Metoprolol XL (24 HR) Succ 50 MG TAB.ER.24H PO SCH (09:18)
[2018-08-02] MEDS: Multivit/Ca/Min/Fe/FA 1 TAB TABLET PO SCH (09:18)
[2018-08-02] MEDS: Lactobacillus 1 EACH CAP.SPRINK PO SCH (09:18)
[2018-08-02] MEDS: Furosemide 40 MG TABLET PO SCH (09:18)
[2018-08-02] MEDS: *HR* GlipiZIDE 5 MG TABLET PO SCH ×2 (09:19→17:21)
[2018-08-02] MEDS: Insulin LISPRO 300 UNITS/3 ML VIAL SQ SCH ×3 (09:19→17:23)
[2018-08-02] MEDS: Acetaminophen 325 MG TABLET PO SCH ×2 (09:19→12:07)
[2018-08-02] MEDS: Cefdinir 300 MG CAPSULE PO SCH (09:20)
[2018-08-02] MEDS: *HR* SitaGLIPtin 25 MG TABLET PO SCH (09:20)
[2018-08-02 10:17] LABS: Estimated Average Glucose 214 mg/dl; Hemoglobin A1C 9.1 %
[2018-08-02] MEDS: Gabapentin 100 MG CAPSULE PO SCH (11:01)
--- NOTE | 2018-08-02 15:32 | Internal Med Progress Note ---
Date of Encounter: 08/02/18 Time of Encounter: 15:20 - Assessment and plan (1) Femur fracture, right Current Visit: Yes Status: Acute Assessment and plan: August 01. Continue PT and OT intervention with Lovenox. Tylenol will be s cheduled. Continue Percocet as needed. August 02. She states she is fearful of becoming drug dependent on Percocet so has refused it. She states she has also declined scheduled Tylenol on occasion when she does not feel pain at the time it is due to be administered. I offered her Excedrin that she stated she uses at home but she does not wish to have that either. Continue PT and OT intervention with Lovenox. Qualifiers: Encounter type: subsequent encounter Femur location: unspecified portion of femur Fracture type: closed Fracture morphology: unspecified fracture morphology Fracture healing: with nonunion Qualified Code(s): S72.91XK - Unspecified fracture of right femur, subsequent encounter for closed fracture with nonunion (2) Hypertension Current Visit: Yes Status: Chronic Assessment and plan: August 01. Blood pressure borderline low. Discontinue Norvasc. Continue Toprol- XL. Qualifiers: Hypertension type: essential hypertension Qualified Code(s): I10 - Essenti al (primary) hypertension (3) Anemia Current Visit: Yes Status: Acute Assessment and plan: August 01. B12 and folate levels pending. Available results showed iron 29, transferrin saturation 10%, transferrin 218, and ferritin 127. Start ferrous sulfate with ascorbic acid in a.m. August 02. Hemoglobin stable at 9.6. B12 and folate levels normal at 418 at 9.2 respectively. Continue ferrous sulfate with ascorbic acid. Qualifiers: Anemia type: unspecified type Qualified Code(s): D64.9 - Anemia, unspecified (4) Azotemia Current Visit: Yes Status: Acute Assessment and plan: August 01. BUN and creatinine decreased slightly to 30 and 0.97 respectively with estimated GFR 56. Continue to monitor labs. August 02. Creatinine stable at 1.02 with estimated GFR 53. Continue to monitor renal indices periodically. (5) DM type 2 (diabetes mellitus, type 2) Current Visit: Yes Status: Acute Assessment and plan: August 01. Hemoglobin A1c pending. Continue Glucotrol and Accu-Cheks with SSI. Start Januvia since blood sugars are above desirable range. August 02. Hemoglobin A1c elevated at 9.1%. She refuses Januvia. Start Actos and continue Accu-Cheks with SSI. Qualifiers: Diabetes mellitus vending attendant insulin use: with senior living use Diabetes mellitus complication status: with unspecified complications Qualified Code(s): E11.8 - Type 2 diabetes mellitus with unspecified complications; Z79.4 - histologic aide (current) use of insulin (6) Hyperlipidemia Current Visit: Yes Status: Chronic Assessment and plan: August 01. Lipid profile showed cholesterol 138, triglycerides 160, LDL 79, HDL 27, and total/HDL ratio 5.1%. Continue Lipitor. Qualifiers: Hyperlipidemia type: unspecified Qualified Code(s): E78.5 - Hyperlipidemia, unspecified - Subjective Interval history: August 01. She has no new complaints. She states her right leg is hurting. August 02. She has multiple complaints today. She reports the hospital was noisy last evening and she was actually fearful to go to sleep because of some yelling heard down the hallway so she did not go to sleep until approximately 8 AM this morning. She reports staff moved her right leg in an attempt to assist her and caused significant pain. She states she is frustrated that her blood sugars are not better controlled but she refused Januvia stating it "makes her sick". She also reports that Levemir and Lantus use in the past "made her sick". She states she wishes to go home. - Constitutional Vitals: Temp Pulse Resp BP Pulse Ox 98.5 F 83 16 104/66 92 08/02/18 07:00 08/02/18 07:00 08/02/18 07:00 08/02/18 07:00 08/02/18 07:00 Exam: She is lying in bed and appears frequently agitated in conversation. She is tearful at other times. I reviewed her medications and lab results. Internal Medicine: Result - Labs CBC & Chem 7: 08/02/18 05:55 08/02/18 05:55 Labs: Short CBC 08/02/18 Range/Units 05:55 WBC 7.1 (4.3-11.1) K/mcL Hgb 9.6 L (11.5-15.4) g/dL Hct 30.8 L (35.3-44.9) % Plt Count 245 (140-400) K/mcL Neutrophils # 3.6 (1.6-8.9) K/mcL BMP 08/02/18 05:55 Sodium 144 Potassium 3.8 Chloride 104 Carbon Dioxide 30 H BUN 30 H Creatinine 1.02 Glucose 226 H Calcium 9.0 Consult Discharge Plan - Plan Referrals: Zee Ortiz [Primary Care Provider] - 1 week
[2018-08-02] MEDS ORDERED: Furosemide 20 MG TABLET PO SCH (17:00)
--- NOTE | 2018-08-02 19:45 | Discharge Summary ---
Date of Encounter: 08/02/18 Time of Encounter: 19:42 - Discharge Diagnosis (1) Femur fracture, right Priority: Primary Status: Acute Qualifiers: Encounter type: subsequent encounter Femur location: unspecified portion of femur Fracture type: closed Fracture morphology: unspecified fracture morphology Fracture healing: with nonunion Qualified Code(s): S72.91XK - Unspecified fracture of right femur, subsequent encounter for closed fracture with nonunion (2) Hypertension Priority: Secondary Status: Chronic Qualifiers: Hypertension type: essential hypertension Qualified Code(s): I10 - Essential (primary) hypertension (3) Anemia Priority: Secondary Status: Acute Qualifiers: Anemia type: unspecified type Qualified Code(s): D64.9 - Anemia, unspecified (4) Azotemia Priority: Secondary Status: Acute (5) DM type 2 (diabetes mellitus, type 2) Priority: Secondary Status: Chronic Qualifiers: Diabetes mellitus terminal superintendent insulin use: with halfway use Diabetes mellitus complication status: with unspecified complications Qualified Code(s): E11.8 - Type 2 diabetes mellitus with unspecified complications; Z79.4 - halfway (current) use of insulin (6) Hyperlipidemia Priority: Secondary Status: Chronic Qualifiers: Hyperlipidemia type: unspecified Qualified Code(s): E78.5 - Hyperlipidemia, unspecified Hospital course: Ms. Parks is a 73 year old female who was discharged to [facility] swing bed from [facility] where she underwent elective repair of nonunion right distal femur fracture with hardware removal and intramedullary nail/kaylee placement with right total knee replacement surgery. Her postop course was unremarkable and she was admitted to swing bed for rehabilitation therapy prior to returning to independent living at home. Initial orders were written by the discharging physicians at [facility]. I saw her on July 31 and performed the swing bed history and physical. Physical therapy and occupational therapy evaluation with ongoing interventions were ordered. Analgesics were ordered but she declined using even Tylenol on a regular basis stating she did not want to become drug dependent as she had previously on Percocet in 2016. When I saw her on August 02 she had multiple complaints which I tried to address with her. A few hours later I was notified she wished to return home immediately. I encouraged her to wait until August 03 so PT/OT could give her additional instructions etc. She declined to wait and signed out AMA. Norvasc was discontinued during her hospital stay because of borderline hypotension. Ferrous sulfate and ascorbic acid were given during hospitalization because of likely iron deficiency anemia. Hemoglobin A1c returned elevated at 9.1%. She refused Januvia. I then ordered Actos but she left AMA. - Time Spent with Patient Total time spent providing and/or coordinating discharge services: - Discharge Medications Prescriptions: No Action Lisinopril [Zestril] 10 mg PO DAILY glipiZIDE [Glucotrol] 5 mg PO BIDWM Insulin LISPRO [HumaLOG] 40 units SQ TIDWM Albuterol Sulfate [Albuterol Inhaler] 2 puff IH Q4HR PRN #1 hfa.aer.ad PRN Reason: Shortness Of Breath Atorvastatin [Lipitor] 10 mg PO HS Albuterol Neb Home Medications: Insulin LISPRO [HumaLOG] 40 units SQ TIDWM 01/18/16 [History] Lisinopril [Zestril] 10 mg PO DAILY 01/18/16 [History] glipiZIDE [Glucotrol] 5 mg PO BIDWM 01/18/16 [History] Albuterol Sulfate [Albuterol Inhaler] 2 puff IH Q4HR PRN #1 hfa.aer.ad 04/27/16 [Rx] Albuterol Neb 05/24/16 [History] Atorvastatin [Lipitor] 10 mg PO HS 05/24/16 [History] Allergies/Adverse Reactions: Allergy/AdvReac Type Severity Reaction Status Date / Time Penicillins Allergy Hives Verified 02/15/18 21:52 Iodinated Contrast- Oral and AdvReac Hives Verified 02/15/18 21:52 IV Dye [Iodinated Contrast Media - IV Dye] sumatriptan [From Imitrex] AdvReac Nausea Verified 02/15/18 21:52 Date of admission: 07/30/18 18:26 Primary care physician: Zee Ortiz Consults: 07/30/18 16:07 Consult to Assembler Chassis [CONS] Routine Reason for SW Consult: discharge planning 07/30/18 16:10 Consult to Physical Therapy [CONS] Routine Comment: Evaluate, develop and implement POC Reason for Consult: weakness Does patient have active BEDREST order?: No Is patient medically & hemodynamically stable?: Yes Patient assessed for mobility or mobilized this visit?: No OT [Consult to Occupational Therapy] [CONS] Routine Comment: Evaluate, develop and implement POC Reason for Consult: weakness Does patient have active BEDREST order?: No Is patient medically & hemodynamically stable?: Yes Patient assessed for mobility or mobilized this visit?: No - Constitutional Vitals: Temp Pulse Resp BP Pulse Ox 98.5 F 83 16 104/66 92 08/02/18 07:00 08/02/18 07:00 08/02/18 07:00 08/02/18 07:00 08/02/18 07:00 - Patient Status Disposition: Left Against Medical Advice - Discharge Instructions Follow Up With: Zee Ortiz [Primary Care Provider] - 1 week
[2018-08-03] MEDS ORDERED: *HR* Pioglitazone 15 MG TABLET PO SCH (08:00)
== END 2018-08-02 18:00 | disposition left against medical advice (07) | DRG 565 ==
LOC: INPPIK 07-30 18:26
PROVIDERS: ADMIT Internal Medicine; ATTEND Internal Medicine